=== PATIENT | male | born 1975 | race Caucasian/White ===

== ENCOUNTER 2018-06-15 19:50 | Emergency (ER) | payer BC ==
[2018-06-15] MEDS ORDERED: Lidocaine 1% w/Epinephrine 1:100K 20 ML VIAL ONE (21:55)
[2018-06-15] MEDS ORDERED: Bacitracin Zinc 1 Packet ONE (23:27)
== END 2018-06-15 23:57 | disposition home or self-care (01) ==
LOC: ERS 19:50
DX: S71.112A Laceration without foreign body, left thigh, initial encounter (principal); Z87.891 Personal history of nicotine dependence; W29.3XXA Contact with powered garden and outdoor hand tools and machinery, initial encounter
CPT/HCPCS: 12034; J2001